=== PATIENT | female | born 1970 | race Caucasian/White ===

== ENCOUNTER → 2020-11-14 | Outpatient (CLI) | payer BC ==
[~2020-11-14] MED LIST: BUPR150T12 PO; CLON0.5T2 PO; CVS1CAP2 PO; CYAN100050 PO; D31000TA2 PO; VITA-158 PO; ZOLO100T PO
--- NOTE | 2020-11-14 14:58 | REPPI ---
INDICATION: KIDNEY STONES. COMPARISON: None. TECHNIQUE: Supine AP abdomen two views. FINDINGS: The renal margins are obscured by bowel gas. There are surgical staple lines in the abdominal left upper quadrant there surgical below stasis clips in the right upper quadrant. No calcifications are identified in the abdomen or pelvis. There are calcifications projected over the right hip, likely in the buttock, likely injection granulomas. The bowel gas pattern is normal. IMPRESSION: No abdominal or pelvic calcifications are identified. There are surgical clips as described. There are calcifications projected over the right hip, likely right buttock injection granulomas. <Electronically signed by Karan Vitale > 11/14/20 [id number]
== END ==
LOC: M PLAIMG 11:06
PROVIDERS: ATTEND Nurse Practitioner Women's Health
DX: N20.0 Calculus of kidney (principal)

== ENCOUNTER 2020-11-15 15:27 | Inpatient (IN) | payer BC ==
[~2020-11-15] VITALS: Ht 167.6 cm; Wt 131.5 kg
[2020-11-15] MEDS ORDERED: CVS1CAP2 PO (16:06)
[2020-11-15] MEDS ORDERED: CLON0.5T2 PO (16:06)
[2020-11-15] MEDS ORDERED: D31000TA2 PO (16:06)
[2020-11-15] MEDS ORDERED: BUPR150T12 PO (16:06)
[2020-11-15] MEDS ORDERED: CYAN100050 PO (16:06)
[2020-11-15] MEDS ORDERED: ZOLO100T PO (16:06)
[2020-11-15] MEDS ORDERED: VITA-158 PO (16:06)
[2020-11-15] MEDS ORDERED: fentaNYL 100 MCG/2 ML INJECTION (J3010) IV ONE (16:35)
[2020-11-15] MEDS ORDERED: ONDANSETRON 4MG/2ML VIAL IV PRN (17:15)
[2020-11-15] MEDS ORDERED: KETOROLAC 30 MG/ML 1ML VIAL IV PRN (17:15)
[2020-11-15] MEDS ORDERED: ACETAMINOPHEN TAB 650MG DOSE (2X325MG) PO PRN (17:15)
[2020-11-15 17:31] LABS: BASO # 0.1 10^3/uL (0.0-0.2); BASO % 0.7 % (0.0-1.0); EOS # 0.1 10^3/uL (0.0-0.5); EOS % 1.1 % (0.0-3.0); HEMATOCRIT 41.2 % (36.0-47.0); HEMOGLOBIN 13.5 g/dl (12.0-15.5); LYMPH # 1.7 10^3/uL (1.5-5.0); LYMPH % 20.6 % (24.0-44.0); MEAN CORPUSCULAR HEMOGLOBIN 29.4 pg (27.0-33.0); MEAN CORPUSCULAR HGB CONC 32.8 g/dl (32.0-36.5); MEAN CORPUSCULAR VOLUME 89.8 fl (80.0-96.0); MONO # 0.6 10^3/uL (0.0-0.8); MONO % 6.8 % (2.0-8.0); NEUTROPHILS # 5.9 10^3/uL (1.5-8.5); NEUTROPHILS % 70.6 % (36.0-66.0); PLATELET COUNT, AUTOMATED 260 10^3/uL (150-450); RED BLOOD COUNT 4.59 10^6/uL (4.00-5.40); WHITE BLOOD COUNT 8.4 10^3/uL (4.0-10.0)
[2020-11-15 17:40] LABS: INR 0.9; PROTHROMBIN TIME 12.4 SECONDS (12.5-14.3)
[2020-11-15 18:06] LABS: BLOOD UREA NITROGEN 18 MG/DL (7-18); CALCIUM LEVEL 8.9 MG/DL (8.5-10.1); CARBON DIOXIDE LEVEL 30 MEQ/L (21-32); CHLORIDE LEVEL 108 MEQ/L (98-107); CREATININE FOR GFR 0.88 MG/DL (0.55-1.30); GLOMERULAR FILTRATION RATE > 60.0 (>58); GLUCOSE, FASTING 101 MG/DL (70-100); POTASSIUM SERUM 4.1 MEQ/L (3.5-5.1); RSV AMPLIFICATION NEGATIVE (NEGATIVE); SODIUM LEVEL 141 MEQ/L (136-145)
--- NOTE | 2020-11-15 19:45 | HPEPDOC ---
General Date of Admission Nov 15, 2020 at 17:11 Date of Service: Nov 15, 2020 Chief Complaint The patient is a 50-year-old female admitted with a reason for visit of Intractable Pain Ureterolithiasis. Source: Patient History of Present Illness Mrs. Best is a 50 year old female with nephrolithiasis, Dar-Danlos syndrome, and history of gastric bypass who presents with 7mm right kidney stone. She was initially seen at [facility] last Wednesday for flank pain and found to have nephrolithiasis with a kidney stone of 7mm. She was sent home, but was supposed to have lithotripsy and stent placement by urology, Dr. Montoya today. Unfortunately, she did not know and ate a late breakfast. Right sided flank pain is still significant and has caused her to be nauseous. She vomited once on Wednesday. Pain has been constant and unremitting. Otherwise, patient does not have leukocytosis. UA demonstrates blood and pyuria which is likely from the stone. She has no dysuria. Would be cautious with antibiotics due to history of C.diff. Patient will be admitted for pain control and plan for surgery tomorrow with urology. Home Medications Scheduled Ascorbic Acid (Vitamin C) 500 Mg Tablet, 500 MG PO DAILY, (Reported) Bupropion Hcl (Bupropion Xl) 150 Mg Tab.er.24h, 150 MG PO DAILY, (Reported) Cholecalciferol (Vitamin D3) (Vitamin D3) 1,000 Unit Tablet, 1,000 UNITS PO DAILY, (Reported) Clonazepam (Clonazepam) 0.5 Mg Tablet, 0.5 MG PO QHS, (Reported) Cyanocobalamin (Vitamin B-12) (Vitamin B-12) 1,000 Mcg Tablet, 1,000 MCG PO DAILY, (Reported) Lactobacillus Combo No.10 (Probiotic) 1 Each Capsule, 1 CAP PO DAILY, (Reported) Sertraline Hcl (Zoloft) 100 Mg Tablet, 100 MG PO QHS, (Reported) Allergies Coded Allergies: Tetracyclines (Verified Allergy, Intermediate, 11/15/20) hives hydrocodone (Verified Allergy, Unknown, 11/15/20) morphine (Verified Allergy, Unknown, 11/15/20) shellfish derived (Verified Allergy, Unknown, 11/15/20) Past Medical History Medical History 1. Anxiety 2. Asthma 3. Depression 4. GERD 5. History of C.diff 6. Dar-Danlos syndrome 7. Insomnia 8. IBS 9. Nephrolithiasis 10. Meniere's disease 11. Obesity Surgical History 1. Cholecystectomy 2. Gastric bypass 3. Hysterectomy Family History Father: Trigeminal neuralgia, Diabetes mellitus, Melanoma, Dementia Mother: Mitral valve prolapse, Arthritis, CHF, COPD, Syncope Social History * Smoker: former Smoker (quit in 2008) Alcohol: Denies Drugs: denies A-FIB/CHADSVASC A-FIB History Current/History of A-Fib/PAF?: No Review of Systems Constitutional: Denies: Chills (Had chills when at [facility] on Wednesday, but not since then) Eyes: Reports: Vision change (Had blurry vision this morning, but improved) ENT: Denies: Sore Throat Skin: Denies: Rash Pulmonary: Reports: Dyspnea (related to anxiety), Cough (related to anxiety) Cardiovascular: Denies: Chest Pain Gastrointestinal: Reports: Nausea, Vomiting (last vomited Wednesday); Denies: Abdominal Pain Genitourinary: Denies: Dysuria Hematologic: Reports: Bruising Musculoskeletal: Reports: Other Symptoms (Flank pain) Neurological: Denies: Numbness Psych: Reports: Anxiety; Denies: Depression Physical Examination General Exam: Positive: Alert, Cooperative, Mild Distress Eye Exam: Positive: EOMI; Negative: Sclera icteric ENT Exam: Positive: Atraumatic Neck Exam: Positive: Supple Chest Exam: Positive: Clear to auscultation; Negative: Rales, Rhonchi, Wheezing Heart Exam: Positive: Rate Normal, Regular Rhythm Abdomen Exam: Positive: Normal bowel sounds, Soft; Negative: Tenderness Extremity Exam: Negative: Edema Neuro Exam: Positive: Normal Speech, Cranial Nerves 3-12 NL Psych Exam: Positive: Mental status NL, Mood NL Vital Signs Vital Signs Date Time Temp Pulse Resp B/P (MAP) Pulse Ox O2 Delivery O2 Flow Rate FiO2 11/15/20 19:02 97.3 58 18 126/87 (100) 99 Room Air Laboratory Data Labs 24H Laboratory Tests 2 11/15/20 16:45: Immature Granulocyte % (Auto) 0.2, Neutrophils (%) (Auto) 70.6H, Lymphocytes (%) (Auto) 20.6L, Monocytes (%) (Auto) 6.8, Eosinophils (%) (Auto) 1.1, Basophils (%) (Auto) 0.7, Neutrophils # (Auto) 5.9, Lymphocytes # (Auto) 1.7, Monocytes # (Auto) 0.6, Eosinophils # (Auto) 0.1, Basophils # (Auto) 0.1, Nucleated Red Blood Cells % (auto) 0.0, Prothrombin Time 12.4, Prothromb Time International Ratio 0.90, Anion Gap 3L, Glomerular Filtration Rate > 60.0, Calcium Level 8.9, Coronavirus (COVID-19)(PCR) NEGATIVE, Influenza Type A (RT-PCR) NEGATIVE, Influenza Type B (RT-PCR) NEGATIVE, Respiratory Syncytial Virus (PCR) NEGATIVE 11/15/20 16:46: Urine Color YELLOW, Urine Appearance CLOUDYH, Urine pH 6.0, Urine Specific [place] 1.016, Urine Protein 1+H, Urine Glucose (UA) NEGATIVE, Urine Ketones TRACEH, Urine Blood 3+H, Urine Nitrite NEGATIVE, Urine Bilirubin NEGATIVE, Urine Urobilinogen 2.0H, Urine Leukocyte Esterase 1+H, Urine WBC (Auto) 10H, Urine RBC (Auto) TNTCH, Urine Hyaline Casts (Auto) 0, Urine Bacteria (Auto) NEGATIVE, Urine Squamous Epithelial Cells 3, Urine Mucus (Auto) SMALL, Urine Sperm (Auto) CBC/BMP Laboratory Tests 11/15/20 16:45 Microbiology Microbiology 11/15/20 Urine Culture, Received Pending Assessment/Plan Mrs. Best is a 50 year old female with nephrolithiasis, Dar-Danlos syndrome, and history of gastric bypass who presents with 7mm right kidney stone. She will be admitted for pain control. Will start on IV ketorolac, IV fluids, and start NPO after midnight. Due to her history of gastric bypass, will start famotidine while on IV ketorolac. Plain for OR tomorrow morning with urology Plan / VTE VTE Prophylaxis Ordered?: Yes Plan Plan 1. Right 7mm kidney stone -Urology consulted, recommendations appreciated -Plan to go to the OR tomorrow morning -IV ketorolac for pain -IVF and stone analysis if possible -NPO after midnight 2. History of C.diff -Continue lactobacillus -Cautious with antibiotics 3. History of gastric bypass -Added on famotidine and liquid Carafate since patient will be on IV ketorolac for pain 4. Anxiety/depression -Continue bupropion, sertraline, and clonazepam 5. DVT ppx -SCD and TEDs Disposition: Pending surgery AMALIA MATHEWS DO Nov 15, 2020 19:45
[2020-11-15 20:15] VITALS: BP 107/69
[2020-11-15] MEDS: NS 1,000 ML IV SCH (20:26)
[2020-11-15] MEDS ORDERED: SERTRALINE 100 MG TAB PO SCH (21:00)
[2020-11-15] MEDS ORDERED: clonazePAM 0.5 MG TAB PO SCH (21:00)
[2020-11-15] MEDS: SUCRALFATE SUSP 1GM/10ML UD PO SCH (21:55)
[2020-11-16] MEDS: NS 1,000 ML IV SCH (04:30)
[2020-11-16 06:00] VITALS: BP 110/62
[2020-11-16 06:03] LABS: HEMATOCRIT 38.7 % (36.0-47.0); HEMOGLOBIN 12.4 g/dl (12.0-15.5); MEAN CORPUSCULAR VOLUME 90.6 fl (80.0-96.0); PLATELET COUNT, AUTOMATED 220 10^3/uL (150-450); RED BLOOD COUNT 4.27 10^6/uL (4.00-5.40); WHITE BLOOD COUNT 5.9 10^3/uL (4.0-10.0)
[2020-11-16 06:24] LABS: BLOOD UREA NITROGEN 15 MG/DL (7-18); CALCIUM LEVEL 8.2 MG/DL (8.5-10.1); CARBON DIOXIDE LEVEL 29 MEQ/L (21-32); CHLORIDE LEVEL 111 MEQ/L (98-107); CREATININE FOR GFR 0.93 MG/DL (0.55-1.30); GLOMERULAR FILTRATION RATE > 60.0 (>58); GLUCOSE, FASTING 93 MG/DL (70-100); POTASSIUM SERUM 4.2 MEQ/L (3.5-5.1); SODIUM LEVEL 143 MEQ/L (136-145)
[2020-11-16 09:00] VITALS: BP 121/66
[2020-11-16] MEDS ORDERED: CYANOCOBALAMIN 500 MCG TAB PO SCH (09:00)
[2020-11-16] MEDS ORDERED: buPROPion **XL** TABLET 150MG (WELLBUTRIN XL) PO SCH (09:00)
[2020-11-16] MEDS ORDERED: FAMOTIDINE 20 MG TAB PO SCH (09:00)
[2020-11-16] MEDS ORDERED: ASCORBIC ACID 500 MG TAB PO SCH (09:00)
[2020-11-16] MEDS ORDERED: LACTOBACILLUS ACIDOPHILUS CAP (BACID) PO SCH (09:00)
[2020-11-16] MEDS ORDERED: VITAMIN D 1,000 INTERNATIONAL UNITS TABLET PO SCH (09:00)
[2020-11-16] MEDS: SUCRALFATE SUSP 1GM/10ML UD PO SCH ×2 (09:27→15:55)
[2020-11-16] MEDS ORDERED: MIDAZOLAM INJ 2MG/2ML VIAL (J2250 PER 1MG) As Ordered ONE (09:57)
[2020-11-16] MEDS ORDERED: propofoL 200 MG/20 ML VIAL As Ordered ONE ×2 (09:57→12:29)
[2020-11-16] MEDS ORDERED: fentaNYL 100 MCG/2 ML INJECTION (J3010) As Ordered ONE (09:57)
[2020-11-16] MEDS ORDERED: LIDOCAINE 2% 100MG/5ML SDV (FOR ANES.) As Ordered ONE (09:57)
[2020-11-16] MEDS ORDERED: ACETAMINOPHEN 1000MG 100ML IV BTL (OFIRMEV) (J0131 PER 10MG) As Ordered ONE (09:58)
[2020-11-16] MEDS ORDERED: CONRAY-60 60% 50ML VIAL (Q9961) As Ordered ONE (11:14)
[2020-11-16] MEDS ORDERED: ceFAZolin 2 GM/D5W 50 ML IV BAG (J0690 PER 500MG) As Ordered ONE (11:22)
--- NOTE | 2020-11-16 12:14 | IPNPDOC ---
Subjective Date Seen The patient was seen on 11/16/20. Subjective Chief Complaint/HPI Mrs. Best is a 50 year old female with nephrolithiasis, Dar-Danlos syndrome, and history of gastric bypass who presents with 7mm right kidney stone. This morning, pain is controlled, she has a few twinges of pain. Has not passed stone. Denies chest pain or dyspnea. Patient kept NPO overnight for possible procedure today. Objective Physical Examination General Exam: Positive: Alert, Cooperative, Mild Distress Eye Exam: Positive: EOMI; Negative: Sclera icteric ENT Exam: Positive: Atraumatic Neck Exam: Positive: Supple Chest Exam: Positive: Clear to auscultation; Negative: Rales, Rhonchi, Wheezing Heart Exam: Positive: Rate Normal, Regular Rhythm Abdomen Exam: Positive: Normal bowel sounds, Soft; Negative: Tenderness Extremity Exam: Negative: Edema Neuro Exam: Positive: Normal Speech, Cranial Nerves 3-12 NL Psych Exam: Positive: Mental status NL, Mood NL Assessment /Plan Assessment Mrs. Best is a 50 year old female with nephrolithiasis, Dar-Danlos syndrome, and history of gastric bypass who presents with 7mm right kidney stone. She will be admitted for pain control. Will start on IV ketorolac, IV fluids, and start NPO after midnight. Due to her history of gastric bypass, will start famotidine while on IV ketorolac. Kept NPO after midnight for possible procedure this morning. Plan/VTE VTE Prophylaxis Ordered?: Yes Plan 1. Right 7mm kidney stone -Urology consulted, recommendations appreciated -Plan for OR today -IV ketorolac for pain -IVF and stone analysis if possible 2. History of C.diff -Continue lactobacillus -Cautious with antibiotics 3. History of gastric bypass -Added on famotidine and liquid Carafate since patient will be on IV ketorolac for pain 4. Anxiety/depression -Continue bupropion, sertraline, and clonazepam 5. DVT ppx -SCD and TEDs Disposition: Pending surgery and Urology recommendations VS, I&O, 24H, Fishbone Vital Signs/I&O Vital Signs Date Time Temp Pulse Resp B/P (MAP) Pulse Ox O2 Delivery O2 Flow Rate FiO2 11/16/20 09:00 97.2 52 13 121/66 (84) 98 Room Air I&O- Last 24 Hours up to 6 AM 4/10/21 06:00 Intake Total 0 ml Output Total 400 ml Balance -400 ml Laboratory Data 24H LABS Laboratory Tests 2 11/15/20 16:45: Immature Granulocyte % (Auto) 0.2, Neutrophils (%) (Auto) 70.6H, Lymphocytes (%) (Auto) 20.6L, Monocytes (%) (Auto) 6.8, Eosinophils (%) (Auto) 1.1, Basophils (%) (Auto) 0.7, Neutrophils # (Auto) 5.9, Lymphocytes # (Auto) 1.7, Monocytes # (Auto) 0.6, Eosinophils # (Auto) 0.1, Basophils # (Auto) 0.1, Nucleated Red Blood Cells % (auto) 0.0, Prothrombin Time 12.4, Prothromb Time International Ratio 0.90, Anion Gap 3L, Glomerular Filtration Rate > 60.0, Calcium Level 8.9, Coronavirus (COVID-19)(PCR) NEGATIVE, Influenza Type A (RT-PCR) NEGATIVE, Influenza Type B (RT-PCR) NEGATIVE, Respiratory Syncytial Virus (PCR) NEGATIVE 11/15/20 16:46: Urine Color YELLOW, Urine Appearance CLOUDYH, Urine pH 6.0, Urine Specific [place] 1.016, Urine Protein 1+H, Urine Glucose (UA) NEGATIVE, Urine Ketones TRACEH, Urine Blood 3+H, Urine Nitrite NEGATIVE, Urine Bilirubin NEGATIVE, Urine Urobilinogen 2.0H, Urine Leukocyte Esterase 1+H, Urine WBC (Auto) 10H, Urine RBC (Auto) TNTCH, Urine Hyaline Casts (Auto) 0, Urine Bacteria (Auto) NEGATIVE, Urine Squamous Epithelial Cells 3, Urine Mucus (Auto) SMALL, Urine Sperm (Auto) 11/16/20 05:47: Nucleated Red Blood Cells % (auto) 0.0, Anion Gap 3L, Glomerular Filtration Rate > 60.0, Calcium Level 8.2L CBC/BMP Laboratory Tests 11/15/20 16:45 11/16/20 05:47 Microbiology Microbiology 11/15/20 Urine Culture, Received Pending AMALIA MATHEWS DO Nov 16, 2020 12:14
[2020-11-16] MEDS ORDERED: ePHEDrine SULFATE 25 MG/5 ML(5MG/ML) SYRINGE As Ordered ONE (12:41)
[2020-11-16] MEDS ORDERED: LIDOCAINE 2% 5ML JELLY UROJET As Ordered ONE (12:44)
[2020-11-16] MEDS ORDERED: HYDROMORPHONE HCL 0.5 MG/ 0.5 ML SYRINGE (J1170 PER 1) IV PRN (13:15)
[2020-11-16] MEDS ORDERED: METOCLOPRAMIDE INJ 10MG/2ML VIAL (J2765 PER 1) IV PRN (13:15)
[2020-11-16] MEDS ORDERED: ONDANSETRON 4MG/2ML VIAL IV PRN (13:15)
[2020-11-16] MEDS ORDERED: LR 1,000 ML IV SCH (13:15)
[2020-11-16] MEDS ORDERED: fentaNYL 100 MCG/2 ML INJECTION (J3010) IV PRN (13:15)
[2020-11-16 13:45] VITALS: BP 138/78
--- NOTE | 2020-11-16 13:54 | ROOPDOC ---
[facility] Report Of Operation Report of Operation DATE OF PROCEDURE: 11/16/20 PREPROCEDURE DIAGNOSES: 7 mm right ureteropelvic junction stone POSTPROCEDURE DIAGNOSES: No definite stones seen PROCEDURE: Cystoscopy, right ureteroscopy, and right ureteral stent placement SURGEON: Cristy Bustos MD RIP TAILER: None ANESTHESIA: Gen. ESTIMATED BLOOD LOSS: None COMPLICATIONS: None REMARKS: No stone was definitely seen but there was a large blood clot seen with stone fragments in it that was grasped with a stone basket and removed PROCEDURE NOTE: The patient is a 50-year-old female who was seen at [facility] on 11/12/20 with severe right flank pain. A CT scan of the abdomen and pelvis was done which showed a 7 mm right ureteropelvic junction stone with associated hydroureteronephrosis. The patient continued to have pain and was seen in our office where she was scheduled for ureteroscopic stone manipulation. Unfortunately the pain became unbearable and she went back to the emergency room last night where she was admitted and it was decided to bring her to the operating room this morning. All options, alternatives, risks, and benefits were reviewed with the patient and all questions were answered. DESCRIPTION OF PROCEDURE: The patient was brought into the operating room and preoperative antibiotics have been given and SCDs were in place. An oral anesthesia was induced and then she was then placed in the lithotomy position. Careful attention was paid that her pressure points were well padded and protected. Next she was prepped and draped in the usual fashion. A 21 Yemeni cystoscope was inserted. The urethra was open without any lesions or strictures. Upon entering the bladder both ureteral orifices were seen. There was no evidence of stones, erythematous patches, lesions, or other abnormalities in the bladder. Under fluoroscopic guidance a wire was placed up the right ureteral orifice into the right collecting system. This was left as a safety wire. A second wire was then placed and a ureteral reentry sheath was placed over this. Next a flexible ureteroscope was passed and no stone was seen at the UPJ. At this point I injected some contrast into the collecting systems I could see were all the different calyces were. I then continued with ureteroscopic investigation. I did see 2 tiny stones and one blood clot that was filled with small fragments. I was able to remove the blood clot and is possible that the 7 mm stone had been with in this but got dissolved very easily when this was closed. I did not see any definite 7 mm stone ever in the kidney or the entire ureter which was also investigated. At this point a 6 Yemeni double-J ureteral stent was placed and the patient was returned to the recovery room in stable condition. CRISTY BUSTOS MD Nov 16, 2020 13:54
--- NOTE | 2020-11-16 14:08 | CR.PDOC ---
General Date of Consultation: Nov 16, 2020 Referring Provider: AMALIA MATHEWS DO Consultation REASON FOR CONSULTATION/CHIEF COMPLAINT: 7 mm right ureteropelvic junction stone with pain and nausea HISTORY OF PRESENT ILLNESS: Patient is a 50-year-old female who presented to [facility] originally on 11/12/20 with complaints of right flank pain and nausea. A CT scan of the abdomen and pelvis was done which showed a 7 mm right ureteropelvic junction stone with associated hydronephrosis. She was sent home but continued to have pain. She was seen in our office where she was then set up for outpatient surgery. Prior to the surgery date though she continued to have severe pain and came to the emergency room at [facility] last night. It was decided to bring her to the operating room today for stent placement and possible stone removal. All options, alternatives, risks, and benefits were discussed. Patient denied any gross hematuria or burning with urination. She denies recurrent urinary tract infections. She did have a kidney stone last year which most likely passed on its own. CT scan shows no other definite stones only have the report and not the films to review. An admission her white blood count and creatinine were normal and her urine showed too numerous to count red blood cells and 10 white blood cells per high-power field. The final urine culture comes back with no growth. ALLERGIES: Please see below. HOME MEDICATIONS: Please see below. PAST MEDICAL HISTORY: 1. Anxiety 2. Asthma 3. Depression 4. GERD 5. History of C.diff 6. Dar-Danlos syndrome 7. Insomnia 8. IBS 9. Nephrolithiasis in a patient who passed one stone last year 10. Meniere's disease 11. Obesity PAST SURGICAL HISTORY: 1. Cholecystectomy 2. Gastric bypass 3. Hysterectomy FAMILY HISTORY: There is no family history of kidney stone disease or other urologic abnormalities. Her father does have diabetes, melanoma, dementia, and trigeminal neuralgia. Her mother had CHF. COPD, mitral valve prolapse, and arthritis. SOCIAL HISTORY: She is . She denies drinking alcohol or using drugs. She quit smoking cigarettes in 2008. REVIEW OF SYSTEMS: A 12 system review was done. Originally she did have some chills when seen at [facility] but these have resolved. She also had some nausea and vomiting last week and still had some nausea with the pain. She had the right flank pain as above. The rest of the review is completely normal. PHYSICAL EXAMINATION: VITAL SIGNS: Please see below. This is a well-developed well-nourished female in no apparent respiratory distress. She is alert and oriented 3. Her head is normocephalic atraumatic. Her trachea is midline. She has no supraclavicular or cervical adenopathy. Her heart has a regular rate and rhythm and her lungs are clear to auscultation percussion. There are no rales, rhonchi, or wheezing. She does have some right CVA tenderness and mild right-sided abdominal pain but without rebound guarding or masses. Her extremities show no cyanosis clubbing or edema. Neurologic exam is nonfocal. LABORATORY DATA: Please see below. ASSESSMENT/PLAN: -7 mm right ureteropelvic junction stone in a patient with continued pain we w ill plan on bringing her urgently to the operating room for cystoscopy, ureteroscopy, and stent placement. She understands because of where the stone is that it may be pushed back into the kidney and that we may not be up to remove it today and she may require further outpatient management. -Patient has a history of C. difficile so since her urine culture is negative I would not give prophylactic antibiotics Vital Signs/I&O Vital Signs Date Time Temp Pulse Resp B/P (MAP) Pulse Ox O2 Delivery O2 Flow Rate FiO2 11/16/20 13:15 67 18 148/78 (101) 98 Room Air 11/16/20 13:00 12.0 11/16/20 09:00 97.2 I&O- Last 24 Hours up to 6 AM 11/16/20 06:00 Intake Total 0 ml Output Total 400 ml Balance -400 ml Laboratory Data Labs 24H Laboratory Tests 2 11/15/20 16:45: Immature Granulocyte % (Auto) 0.2, Neutrophils (%) (Auto) 70.6H, Lymphocytes (%) (Auto) 20.6L, Monocytes (%) (Auto) 6.8, Eosinophils (%) (Auto) 1.1, Basophils (%) (Auto) 0.7, Neutrophils # (Auto) 5.9, Lymphocytes # (Auto) 1.7, Monocytes # (Auto) 0.6, Eosinophils # (Auto) 0.1, Basophils # (Auto) 0.1, Nucleated Red Blood Cells % (auto) 0.0, Prothrombin Time 12.4, Prothromb Time International Ratio 0.90, Anion Gap 3L, Glomerular Filtration Rate > 60.0, Calcium Level 8.9, Coronavirus (COVID-19)(PCR) NEGATIVE, Influenza Type A (RT-PCR) NEGATIVE, Influenza Type B (RT-PCR) NEGATIVE, Respiratory Syncytial Virus (PCR) NEGATIVE 11/15/20 16:46: Urine Color YELLOW, Urine Appearance CLOUDYH, Urine pH 6.0, Urine Specific [place] 1.016, Urine Protein 1+H, Urine Glucose (UA) NEGATIVE, Urine Ketones TRACEH, Urine Blood 3+H, Urine Nitrite NEGATIVE, Urine Bilirubin NEGATIVE, Urine Urobilinogen 2.0H, Urine Leukocyte Esterase 1+H, Urine WBC (Auto) 10H, Urine RBC (Auto) TNTCH, Urine Hyaline Casts (Auto) 0, Urine Bacteria (Auto) NEGATIVE, Urine Squamous Epithelial Cells 3, Urine Mucus (Auto) SMALL, Urine Sperm (Auto) 11/16/20 05:47: Nucleated Red Blood Cells % (auto) 0.0, Anion Gap 3L, Glomerular Filtration Rate > 60.0, Calcium Level 8.2L CBC/BMP Laboratory Tests 11/15/20 16:45 11/16/20 05:47 Microbiology Microbiology 11/15/20 Urine Culture - Final, Complete Allergies Coded Allergies: Tetracyclines (Verified Allergy, Intermediate, 11/15/20) hives hydrocodone (Verified Allergy, Unknown, ANAPHYLAXIS, 11/16/20) morphine (Verified Allergy, Unknown, 11/15/20) shellfish derived (Verified Allergy, Unknown, 11/15/20) Home Medications Scheduled Ascorbic Acid (Vitamin C) 500 Mg Tablet, 500 MG PO DAILY, (Reported) Bupropion Hcl (Bupropion Xl) 150 Mg Tab.er.24h, 150 MG PO DAILY, (Reported) Cholecalciferol (Vitamin D3) (Vitamin D3) 1,000 Unit Tablet, 1,000 UNITS PO DAILY, (Reported) Clonazepam (Clonazepam) 0.5 Mg Tablet, 0.5 MG PO QHS, (Reported) Cyanocobalamin (Vitamin B-12) (Vitamin B-12) 1,000 Mcg Tablet, 1,000 MCG PO DAILY, (Reported) Lactobacillus Combo No.10 (Probiotic) 1 Each Capsule, 1 CAP PO DAILY, (Reported) Sertraline Hcl (Zoloft) 100 Mg Tablet, 100 MG PO QHS, (Reported) TYLOR BUSTOS MD Nov 16, 2020 14:07
[2020-11-16 14:15] VITALS: BP 120/67
[2020-11-16 14:45] VITALS: BP 127/68
[2020-11-16 15:45] VITALS: BP 106/82
--- NOTE | 2020-11-16 22:17 | DS.PDOC ---
Discharge Summary General Date of Admission Nov 15, 2020 at 17:11 Date of Discharge Nov 16, 2020 Discharge Summary PROCEDURES PERFORMED DURING STAY: [None]. ADMITTING DIAGNOSES: 1. . DISCHARGE DIAGNOSES: 1. . COMPLICATIONS/CHIEF COMPLAINT: Intractable Pain Ureterolithiasis. HISTORY OF PRESENT ILLNESS: . HOSPITAL COURSE: . DISCHARGE MEDICATIONS: Please see below. ALLERGIES: Please see below. PHYSICAL EXAMINATION ON DISCHARGE: VITAL SIGNS: Please see below. GENERAL: HEENT: NECK: CARDIOVASCULAR EXAMINATION: RESPIRATORY EXAMINATION: ABDOMINAL EXAMINATION: EXTREMITIES: SKIN: NEUROLOGICAL EXAMINATION: PSYCHIATRIC EXAMINATION: LABORATORY DATA: Please see below. IMAGING: PROGNOSIS: ACTIVITY: [As tolerated]. DIET: DISCHARGE PLAN: DISPOSITION: Home, Self-Care. DISCHARGE INSTRUCTIONS: 1. . ITEMS TO FOLLOWUP ON ON OUTPATIENT: 1. . DISCHARGE CONDITION: [Stable]. TIME SPENT ON DISCHARGE: Greater than minutes. Vital Signs/I&Os Vital Signs Date Time Temp Pulse Resp B/P (MAP) Pulse Ox O2 Delivery O2 Flow Rate FiO2 11/16/20 15:45 97.9 66 18 106/82 (90) 95 Room Air 11/16/20 13:00 12.0 I&O- Last 24 Hours up to 6 AM 11/16/20 06:00 Intake Total 0 ml Output Total 400 ml Balance -400 ml Laboratory Data Labs 24H Laboratory Tests 2 11/16/20 05:47: Nucleated Red Blood Cells % (auto) 0.0, Anion Gap 3L, Glomerular Filtration Rate > 60.0, Calcium Level 8.2L CBC/BMP Laboratory Tests 11/16/20 05:47 Microbiology Microbiology 11/15/20 Urine Culture - Final, Complete Discharge Medications Scheduled Ascorbic Acid (Vitamin C) 500 Mg Tablet, 500 MG PO DAILY, (Reported) Bupropion Hcl (Bupropion Xl) 150 Mg Tab.er.24h, 150 MG PO DAILY, (Reported) Cholecalciferol (Vitamin D3) (Vitamin D3) 1,000 Unit Tablet, 1,000 UNITS PO DAILY, (Reported) Clonazepam (Clonazepam) 0.5 Mg Tablet, 0.5 MG PO QHS, (Reported) Cyanocobalamin (Vitamin B-12) (Vitamin B-12) 1,000 Mcg Tablet, 1,000 MCG PO DAILY, (Reported) Lactobacillus Combo No.10 (Probiotic) 1 Each Capsule, 1 CAP PO DAILY, (Reported) Sertraline Hcl (Zoloft) 100 Mg Tablet, 100 MG PO QHS, (Reported) Allergies Coded Allergies: Tetracyclines (Verified Allergy, Intermediate, 11/15/20) hives hydrocodone (Verified Allergy, Unknown, ANAPHYLAXIS, 11/16/20) morphine (Verified Allergy, Unknown, 11/15/20) shellfish derived (Verified Allergy, Unknown, 11/15/20) AMALIA MATHEWS DO Nov 16, 2020 22:17
== END 2020-11-16 16:46 | disposition home or self-care (01) | DRG 443 ==
LOC: M ED 15:27 → M ED INP 17:11 → ENRESERV 18:59 → M MS5PR 20:10
PROVIDERS: ADMIT Internal Medicine; ATTEND Internal Medicine
PROC: 0T768DZ Dilation of Right Ureter with Intraluminal Device, Via Natural or Artificial Opening Endoscopic (ICD-10-PCS; 2020-11-16)
PROC: 0TC04ZZ Extirpation of Matter from Right Kidney, Percutaneous Endoscopic Approach (ICD-10-PCS; principal; 2020-11-16 10:30)
DX: N13.0 Hydronephrosis with ureteropelvic junction obstruction (principal); Z68.42 Body mass index [BMI] 45.0-49.9, adult; Q79.60 Ehlers-Danlos syndrome, unspecified; E66.9 Obesity, unspecified; G47.00 Insomnia, unspecified; F32.9 Major depressive disorder, single episode, unspecified; F41.9 Anxiety disorder, unspecified; J45.909 Unspecified asthma, uncomplicated; K21.9 Gastro-esophageal reflux disease without esophagitis; K58.9 Irritable bowel syndrome, unspecified; H81.09 Meniere's disease, unspecified ear; Z20.822 Contact with and (suspected) exposure to COVID-19; Z79.899 Other long term (current) drug therapy; Z88.5 Allergy status to narcotic agent; Z88.8 Allergy status to other drugs, medicaments and biological substances; Z98.84 Bariatric surgery status; Z91.013 Allergy to seafood; Z87.891 Personal history of nicotine dependence

== ENCOUNTER → 2021-03-07 | Outpatient (REF) | payer BC ==
[2021-03-07 18:22] LABS: C REACTIVE PROTEIN QUANTITATIV 0.36 MG/DL (0.00-0.30); CPK CREATINE PHOSPHOKINASE 102 U/L (26-192); IRON (FE) 66 UG/DL (50-170); MAGNESIUM LEVEL 2.3 MG/DL (1.8-2.4); PHOSPHORUS LEVEL 4.4 MG/DL (2.5-4.9); RHEUMATOID FACTOR QUANT < 10.0 IU/ML (<15.0)
[2021-03-07 18:23] LABS: TOTAL 25(OH) VITAMIN D 35.4 NG/ML (30.0-100.0)
[2021-03-07 18:24] LABS: VITAMIN B12 LEVEL 886 PG/ML (247-911)
[2021-03-11 00:08] LABS: ANA (HEP2) Negative (.); CYCLIC CITRULLINATED PEPTIDE 5 units (0-19)
== END ==
LOC: M SFHCRHEU 15:01
PROVIDERS: ATTEND Internal Medicine
DX: M79.10 Myalgia, unspecified site (principal); M25.40 Effusion, unspecified joint

== ENCOUNTER 2022-06-08 14:20 | Outpatient (CLI) | payer BC ==
[~2022-06-08] VITALS: Ht 167.6 cm; Wt 134.2 kg
[~2022-06-08 14:20] MED LIST changes: +ALBUTEROL SULFATE 2.5 MG/0.5 ML INH NEB SOLN INH PRN; -D31000TA2 PO; +EPINEPHrine INJ 1 MG/ML 1ML AMP IM PRN; +VITA100093 PO; +diphenhydrAMINE 50MG/ML VIAL (J1200) IV PRN; +methylPREDNISolone 125MG 2ML VIAL IV PRN
[2022-06-08 14:25] VITALS: BP 133/79
[2022-06-08] MEDS ORDERED: ABATACEPT IV ONE ×2 (14:30)
[2022-06-08] MEDS ORDERED: diphenhydrAMINE 25MG CAP PO ONE (14:30)
[2022-06-08] MEDS ORDERED: ACETAMINOPHEN TAB 650MG DOSE (2X325MG) PO ONE (14:30)
[2022-06-08] MEDS ORDERED: CLAR10CA3 PO (15:02)
[2022-06-08] MEDS ORDERED: PRED1TABL PO (15:03)
[2022-06-08 16:01] VITALS: BP 133/73
[2022-06-08 16:35] VITALS: BP 147/83
== END 2022-06-08 16:35 | disposition home or self-care (01) ==
LOC: M INFU 14:20
PROVIDERS: ATTEND Internal Medicine
DX: M06.00 Rheumatoid arthritis without rheumatoid factor, unspecified site (principal); Z88.1 Allergy status to other antibiotic agents; Z88.5 Allergy status to narcotic agent; Z91.013 Allergy to seafood
CPT/HCPCS: 96365; J0129

== ENCOUNTER 2022-07-06 14:00 | Outpatient (CLI) | payer BC ==
[~2022-07-06] VITALS: Ht 167.6 cm; Wt 134.7 kg
[2022-07-06 14:00] VITALS: BP 138/78
[~2022-07-06 14:00] MED LIST changes: +ABATACEPT IV ONE; +ACETAMINOPHEN TAB 650MG DOSE (2X325MG) PO ONE; +CLAR10CA3 PO; +PRED1TABL PO; +diphenhydrAMINE 50MG CAP PO ONE; -diphenhydrAMINE 50MG/ML VIAL (J1200) IV PRN; +diphenhydrAMINE 50MG/ML VIAL IV PRN
[2022-07-06 15:45] VITALS: BP 149/70
== END 2022-07-06 15:50 | disposition home or self-care (01) ==
LOC: M INFU 14:00
PROVIDERS: ATTEND Internal Medicine
DX: M06.00 Rheumatoid arthritis without rheumatoid factor, unspecified site (principal)
CPT/HCPCS: 96365; J0129

== ENCOUNTER 2022-08-31 14:05 | Outpatient (CLI) | payer BC ==
[~2022-08-31 14:05] MED LIST changes: -ALBUTEROL SULFATE 2.5 MG/0.5 ML INH NEB SOLN INH PRN; +ALBUTEROL SULFATE 2.5MG/0.5ML INH NEB SOLN INH PRN
[2022-08-31 15:19] VITALS: BP 136/87
== END 2022-08-31 15:20 | disposition home or self-care (01) ==
LOC: M INFU 14:05
PROVIDERS: ATTEND Internal Medicine
DX: M06.00 Rheumatoid arthritis without rheumatoid factor, unspecified site (principal); Z88.1 Allergy status to other antibiotic agents; Z88.5 Allergy status to narcotic agent
CPT/HCPCS: 96365; J0129

== ENCOUNTER 2022-09-28 12:00 | Outpatient (CLI) | payer BC ==
[~2022-09-28] VITALS: Ht 170.2 cm; Wt 131.8 kg
[~2022-09-28 12:00] MED LIST changes: -ABATACEPT IV ONE; -ACETAMINOPHEN TAB 650MG DOSE (2X325MG) PO ONE; -diphenhydrAMINE 50MG CAP PO ONE
[2022-09-28 17:00] VITALS: BP 173/80
[2022-09-28] MEDS ORDERED: ACETAMINOPHEN TAB 650MG DOSE (2X325MG) PO ONE (17:00)
[2022-09-28] MEDS ORDERED: ABATACEPT IV ONE ×2 (17:00)
[2022-09-28] MEDS ORDERED: diphenhydrAMINE 25MG CAP PO ONE (17:00)
[2022-09-28 18:35] VITALS: BP 134/68
== END 2022-09-28 18:35 | disposition home or self-care (01) ==
LOC: M INFU 12:00
PROVIDERS: ATTEND Internal Medicine
DX: M06.00 Rheumatoid arthritis without rheumatoid factor, unspecified site (principal); Z88.1 Allergy status to other antibiotic agents; Z88.5 Allergy status to narcotic agent
CPT/HCPCS: 96365; J0129

== ENCOUNTER 2022-10-26 16:45 | Outpatient (CLI) | payer BC ==
[~2022-10-26] VITALS: Ht 167.6 cm; Wt 134.2 kg
[2022-10-26 16:48] VITALS: BP 133/88
[2022-10-26] MEDS ORDERED: NS 1,000 ML IV SCH (17:00)
[2022-10-26] MEDS ORDERED: ABATACEPT IV ONE ×2 (17:00)
[2022-10-26] MEDS ORDERED: diphenhydrAMINE 50MG CAP PO ONE (17:00)
[2022-10-26] MEDS ORDERED: ACETAMINOPHEN TAB 650MG DOSE (2X325MG) PO ONE (17:00)
[2022-10-26 17:55] VITALS: BP 136/78
== END 2022-10-26 17:55 | disposition home or self-care (01) ==
LOC: M INFU 16:45
PROVIDERS: ATTEND Internal Medicine
DX: M06.00 Rheumatoid arthritis without rheumatoid factor, unspecified site (principal); Z88.5 Allergy status to narcotic agent; Z88.0 Allergy status to penicillin
CPT/HCPCS: 96365; J0129

== ENCOUNTER 2022-11-23 16:14 | Outpatient (CLI) | payer BC ==
[~2022-11-23] VITALS: Ht 170.2 cm; Wt 137.8 kg
[~2022-11-23 16:14] MED LIST changes: -ALBUTEROL SULFATE 2.5MG/0.5ML INH NEB SOLN INH PRN; -EPINEPHrine INJ 1 MG/ML 1ML AMP IM PRN; -diphenhydrAMINE 50MG/ML VIAL IV PRN; -methylPREDNISolone 125MG 2ML VIAL IV PRN
[2022-11-23 16:45] VITALS: BP 130/67
[2022-11-23] MEDS ORDERED: ACETAMINOPHEN TAB 650MG DOSE (2X325MG) PO ONE (17:00)
[2022-11-23] MEDS ORDERED: EPINEPHrine INJ 1 MG/ML 1ML AMP IM PRN (17:00)
[2022-11-23] MEDS ORDERED: NS 1,000 ML IV SCH (17:00)
[2022-11-23] MEDS ORDERED: diphenhydrAMINE 50MG CAP PO ONE (17:00)
[2022-11-23] MEDS ORDERED: ABATACEPT IV ONE ×2 (17:00)
[2022-11-23] MEDS ORDERED: diphenhydrAMINE 50MG/ML VIAL IV PRN (17:00)
[2022-11-23] MEDS ORDERED: methylPREDNISolone 125MG 2ML VIAL IV PRN (17:00)
[2022-11-23] MEDS ORDERED: ALBUTEROL SULFATE 2.5MG/0.5ML INH NEB SOLN INH PRN (17:00)
[2022-11-23 17:45] VITALS: BP 120/58
== END 2022-11-23 17:47 ==
LOC: M INFU 16:14
PROVIDERS: ATTEND Internal Medicine
DX: M06.00 Rheumatoid arthritis without rheumatoid factor, unspecified site (principal); Z88.1 Allergy status to other antibiotic agents; Z88.5 Allergy status to narcotic agent
CPT/HCPCS: 96365; J0129

== ENCOUNTER → 2022-12-08 | Outpatient (REF) | payer BC ==
[2022-12-08 16:46] LABS: ALBUMIN 3.7 G/DL (3.2-5.2); ALKALINE PHOSPHATASE 102 U/L (46-116); ALT/SGPT 19 U/L (7.0-40); AST/SGOT 21 U/L (<34); BASO # 0.1 10^3/uL (0.0-0.2); BASO % 0.9 % (0.0-1.0); BILIRUBIN,DIRECT 0.1 MG/DL (<0.4); BILIRUBIN,TOTAL 0.4 MG/DL (0.3-1.2); BLOOD UREA NITROGEN 16 MG/DL (9-23); CALCIUM LEVEL 8.6 MG/DL (8.5-10.1); CARBON DIOXIDE LEVEL 31 MMOL/L (20-31); CHLORIDE LEVEL 107 MMOL/L (98-107); CREATININE FOR GFR 0.91 MG/DL (0.55-1.30); EOS # 0.1 10^3/uL (0.0-0.5); EOS % 1.6 % (0.0-3.0); GLOMERULAR FILTRATION RATE > 60.0 (>51); GLUCOSE, FASTING 90 MG/DL (60-100); HEMATOCRIT 41.4 % (36.0-47.0); HEMOGLOBIN 12.6 g/dl (12.0-15.5); LYMPH # 1.9 10^3/uL (1.5-5.0); LYMPH % 27.6 % (24.0-44.0); MEAN CORPUSCULAR HEMOGLOBIN 26.5 pg (27.0-33.0); MEAN CORPUSCULAR HGB CONC 30.4 g/dl (32.0-36.5); MONO # 0.6 10^3/uL (0.0-0.8); MONO % 7.9 % (2.0-8.0); NEUTROPHILS # 4.3 10^3/uL (1.5-8.5); NEUTROPHILS % 61.7 % (36.0-66.0); PLATELET COUNT, AUTOMATED 270 10^3/uL (150-450); POTASSIUM SERUM 4.6 MMOL/L (3.5-5.1); RED BLOOD COUNT 4.76 10^6/uL (4.00-5.40); SODIUM LEVEL 143 MMOL/L (136-145); TOTAL PROTEIN 6.5 G/DL (5.7-8.2)
[2022-12-08 16:47] LABS: C REACTIVE PROTEIN QUANTITATIV < 0.40 MG/DL (<1.0)
[2022-12-08 17:35] LABS: ERYTHROCYTE SEDIMENTATION RATE 38 mm/hr (0-30)
== END ==
LOC: M SFHCRHEU 12:37
PROVIDERS: ATTEND Internal Medicine
DX: M06.00 Rheumatoid arthritis without rheumatoid factor, unspecified site (principal)

== ENCOUNTER → 2022-12-21 | Outpatient (CLI) | payer BC ==
[~2022-12-21] VITALS: Ht 170.2 cm; Wt 138.0 kg
[~2022-12-21] MED LIST changes: +ABATACEPT IV ONE; +ACETAMINOPHEN 650MG ER TAB (TYLENOL ARTHRITIS) PO ONE; +ALBUTEROL SULFATE 2.5MG/0.5ML INH NEB SOLN INH PRN; +EPINEPHrine INJ 1 MG/ML 1ML AMP IM PRN; +diphenhydrAMINE 25MG CAP PO ONE; +diphenhydrAMINE 50MG/ML VIAL IV PRN; +methylPREDNISolone 125MG 2ML VIAL IV PRN
[2022-12-21 16:36] VITALS: BP 130/79
[2022-12-21 17:48] VITALS: BP 121/68
== END ==
LOC: M INFU 16:25
PROVIDERS: ATTEND Internal Medicine
DX: M06.00 Rheumatoid arthritis without rheumatoid factor, unspecified site (principal); Z88.1 Allergy status to other antibiotic agents; Z88.5 Allergy status to narcotic agent
CPT/HCPCS: 96365; J0129

== ENCOUNTER 2023-01-18 16:15 | Outpatient (CLI) | payer BC ==
[~2023-01-18] VITALS: Ht 170.2 cm; Wt 133.2 kg
[2023-01-18 16:05] VITALS: BP 174/87; O2SAT 95
[~2023-01-18 16:15] MED LIST changes: -ABATACEPT IV ONE; -ACETAMINOPHEN 650MG ER TAB (TYLENOL ARTHRITIS) PO ONE; -ALBUTEROL SULFATE 2.5MG/0.5ML INH NEB SOLN INH PRN; +CYAN-1 PO; -CYAN100050 PO; -EPINEPHrine INJ 1 MG/ML 1ML AMP IM PRN; -diphenhydrAMINE 25MG CAP PO ONE; -diphenhydrAMINE 50MG/ML VIAL IV PRN; -methylPREDNISolone 125MG 2ML VIAL IV PRN
[2023-01-18] MEDS ORDERED: methylPREDNISolone 125MG 2ML VIAL IV PRN (17:00)
[2023-01-18] MEDS ORDERED: ALBUTEROL SULFATE 2.5MG/0.5ML INH NEB SOLN INH PRN (17:00)
[2023-01-18] MEDS ORDERED: EPINEPHrine INJ 1 MG/ML 1ML AMP IM PRN (17:00)
[2023-01-18] MEDS ORDERED: ABATACEPT IV ONE ×2 (17:00)
[2023-01-18] MEDS ORDERED: ACETAMINOPHEN 650MG ER TAB (TYLENOL ARTHRITIS) PO ONE (17:00)
[2023-01-18] MEDS ORDERED: diphenhydrAMINE 25MG CAP PO ONE (17:00)
[2023-01-18] MEDS ORDERED: diphenhydrAMINE 50MG/ML VIAL IV PRN (17:00)
[2023-01-18 17:32] VITALS: BP 142/80; O2SAT 96
== END 2023-01-18 17:32 | disposition home or self-care (01) ==
LOC: M INFU 16:15
PROVIDERS: ATTEND Internal Medicine
DX: M06.00 Rheumatoid arthritis without rheumatoid factor, unspecified site (principal); Z88.5 Allergy status to narcotic agent; Z88.1 Allergy status to other antibiotic agents
CPT/HCPCS: 96365; J0129

== ENCOUNTER 2023-02-23 14:07 | Outpatient (CLI) | payer BC ==
[~2023-02-23] VITALS: Ht 167.6 cm; Wt 135.6 kg
[~2023-02-23 14:07] MED LIST changes: +ABATACEPT IV ONE; +ACETAMINOPHEN TAB 650MG DOSE (2X325MG) PO ONE; +ALBUTEROL SULFATE 2.5MG/0.5ML INH NEB SOLN INH PRN; +EPINEPHrine INJ 1 MG/ML 1ML AMP IM PRN; +NS 1,000 ML IV SCH; +diphenhydrAMINE 25MG CAP PO ONE; +diphenhydrAMINE 50MG/ML VIAL IV PRN; +methylPREDNISolone 125MG 2ML VIAL IV PRN
[2023-02-23 14:15] VITALS: BP 132/66; O2SAT 97
[2023-02-23 14:21] VITALS: BP 121/59; TEMP 98; O2SAT 97
[2023-02-23 16:00] VITALS: BP 118/64; TEMP 97.8; O2SAT 99
== END 2023-02-23 16:00 ==
LOC: M INFU 14:07
PROVIDERS: ATTEND Internal Medicine
DX: M06.00 Rheumatoid arthritis without rheumatoid factor, unspecified site (principal); Z88.1 Allergy status to other antibiotic agents; Z88.5 Allergy status to narcotic agent
CPT/HCPCS: 96365; J0129

== ENCOUNTER 2023-03-24 14:15 | Outpatient (CLI) | payer BC ==
[~2023-03-24] VITALS: Ht 167.6 cm; Wt 132.0 kg
[~2023-03-24 14:15] MED LIST changes: -ABATACEPT IV ONE; -ACETAMINOPHEN TAB 650MG DOSE (2X325MG) PO ONE; -NS 1,000 ML IV SCH; -diphenhydrAMINE 25MG CAP PO ONE
[2023-03-24 14:23] VITALS: BP 149/75; O2SAT 95
[2023-03-24] MEDS ORDERED: ACETAMINOPHEN 650MG ER TAB (TYLENOL ARTHRITIS) PO ONE (14:30)
[2023-03-24] MEDS ORDERED: ABATACEPT IV ONE ×2 (14:30)
[2023-03-24] MEDS ORDERED: diphenhydrAMINE 50MG CAP PO ONE (14:30)
[2023-03-24 15:45] VITALS: BP 124/79; O2SAT 99
== END 2023-03-24 15:45 ==
LOC: M INFU 14:15
PROVIDERS: ATTEND Internal Medicine
DX: M06.00 Rheumatoid arthritis without rheumatoid factor, unspecified site (principal); Z88.1 Allergy status to other antibiotic agents; Z88.5 Allergy status to narcotic agent
CPT/HCPCS: 96365; J0129

== ENCOUNTER → 2023-03-29 | Outpatient (REF) | payer BC ==
[~2023-03-29] MED LIST changes: -ALBUTEROL SULFATE 2.5MG/0.5ML INH NEB SOLN INH PRN; -EPINEPHrine INJ 1 MG/ML 1ML AMP IM PRN; -diphenhydrAMINE 50MG/ML VIAL IV PRN; -methylPREDNISolone 125MG 2ML VIAL IV PRN
[2023-03-29 18:11] LABS: MAGNESIUM LEVEL 2.2 MG/DL (1.8-2.4)
[2023-03-29 18:15] LABS: FOLATE 13.61 NG/ML (>5.4); TOTAL 25(OH) VITAMIN D 15.9 NG/ML (20.0-100.0)
== END ==
LOC: M SFHCRHEU 13:04
PROVIDERS: ATTEND Internal Medicine
DX: R53.83 Other fatigue (principal)

== ENCOUNTER 2023-04-21 14:15 | Outpatient (CLI) | payer BC ==
[~2023-04-21] VITALS: Ht 170.2 cm; Wt 137.2 kg
[2023-04-21 14:15] VITALS: BP 134/69; O2SAT 97
[~2023-04-21 14:15] MED LIST changes: +ALBUTEROL SULFATE 2.5MG/0.5ML INH NEB SOLN INH PRN; +EPINEPHrine INJ 1 MG/ML 1ML AMP IM PRN; +diphenhydrAMINE 50MG/ML VIAL IV PRN; +methylPREDNISolone 125MG 2ML VIAL IV PRN
[2023-04-21] MEDS ORDERED: ABATACEPT IV ONE ×2 (14:30)
[2023-04-21] MEDS ORDERED: ACETAMINOPHEN 650MG ER TAB (TYLENOL ARTHRITIS) PO ONE (14:30)
[2023-04-21] MEDS ORDERED: diphenhydrAMINE 50MG PO PRIOR TO INFUSION PO ONE (14:30)
[2023-04-21 15:40] VITALS: BP 143/67; O2SAT 97
== END 2023-04-21 15:40 | disposition home or self-care (01) ==
LOC: M INFU 14:15
PROVIDERS: ATTEND Internal Medicine
DX: M06.00 Rheumatoid arthritis without rheumatoid factor, unspecified site (principal); Z88.5 Allergy status to narcotic agent; Z88.8 Allergy status to other drugs, medicaments and biological substances; Z91.013 Allergy to seafood
CPT/HCPCS: 96365; J0129

== ENCOUNTER 2023-05-19 11:25 | Outpatient (CLI) | payer BC ==
[~2023-05-19] VITALS: Ht 170.2 cm; Wt 135.9 kg
[2023-05-19] MEDS ORDERED: ACETAMINOPHEN 650MG ER TAB (TYLENOL ARTHRITIS) PO ONE (16:30)
[2023-05-19] MEDS ORDERED: diphenhydrAMINE 50MG CAP PO ONE (16:30)
[2023-05-19 16:34] VITALS: BP 139/87; TEMP 98.1; O2SAT 94
[2023-05-19] MEDS ORDERED: ABATACEPT IV ONE ×2 (17:00)
[2023-05-19 18:10] VITALS: BP 134/75; O2SAT 100
== END 2023-05-19 18:10 ==
LOC: M INFU 11:25
PROVIDERS: ATTEND Internal Medicine
DX: M06.00 Rheumatoid arthritis without rheumatoid factor, unspecified site (principal); Z88.5 Allergy status to narcotic agent; Z88.1 Allergy status to other antibiotic agents
CPT/HCPCS: 96365; J0129

== ENCOUNTER → 2024-02-03 | Outpatient (REF) | payer BC, MEDICARE ==
[~2024-02-03] MED LIST changes: -ALBUTEROL SULFATE 2.5MG/0.5ML INH NEB SOLN INH PRN; -EPINEPHrine INJ 1 MG/ML 1ML AMP IM PRN; -diphenhydrAMINE 50MG/ML VIAL IV PRN; -methylPREDNISolone 125MG 2ML VIAL IV PRN
[2024-02-03 17:35] LABS: BASO # 0.1 10^3/uL (0.0-0.2); BASO % 1.2 % (0.0-1.0); EOS # 0.2 10^3/uL (0.0-0.5); EOS % 3.2 % (0.0-3.0); HEMATOCRIT 41.7 % (36.0-47.0); HEMOGLOBIN 13.2 g/dl (12.0-15.5); LYMPH # 2.2 10^3/uL (1.5-5.0); LYMPH % 30.3 % (24.0-44.0); MEAN CORPUSCULAR HEMOGLOBIN 28.4 pg (27.0-33.0); MEAN CORPUSCULAR HGB CONC 31.7 g/dl (32.0-36.5); MEAN CORPUSCULAR VOLUME 89.9 fl (80.0-96.0); MONO # 0.6 10^3/uL (0.0-0.8); MONO % 8.5 % (2.0-8.0); NEUTROPHILS # 4.2 10^3/uL (1.5-8.5); NEUTROPHILS % 56.5 % (36.0-66.0); PLATELET COUNT, AUTOMATED 286 10^3/uL (150-450); RED BLOOD COUNT 4.64 10^6/uL (4.00-5.40); WHITE BLOOD COUNT 7.4 10^3/uL (4.0-10.0)
[2024-02-03 17:37] LABS: C REACTIVE PROTEIN QUANTITATIV < 0.40 MG/DL (<1.0)
[2024-02-03 17:39] LABS: ALBUMIN 3.6 G/DL (3.2-5.2); ALKALINE PHOSPHATASE 125 U/L (46-116); ALT/SGPT 29 U/L (7.0-40); AST/SGOT 22 U/L (<34); BILIRUBIN,DIRECT 0.1 MG/DL (<0.4); BILIRUBIN,TOTAL 0.4 MG/DL (0.3-1.2); BLOOD UREA NITROGEN 19 MG/DL (9-23); CALCIUM LEVEL 9.2 MG/DL (8.5-10.1); CARBON DIOXIDE LEVEL 27 MMOL/L (20-31); CHLORIDE LEVEL 108 MMOL/L (98-107); GLOMERULAR FILTRATION RATE > 60.0 (>51); GLUCOSE, FASTING 93 MG/DL (60-100); POTASSIUM SERUM 4.9 MMOL/L (3.5-5.1); SODIUM LEVEL 141 MMOL/L (136-145); TOTAL PROTEIN 6.6 G/DL (5.7-8.2)
[2024-02-03 17:53] LABS: ERYTHROCYTE SEDIMENTATION RATE 36 mm/hr (0-30)
== END ==
LOC: M SFHCRHEU 15:01
PROVIDERS: ATTEND Internal Medicine
DX: M06.00 Rheumatoid arthritis without rheumatoid factor, unspecified site (principal)

== ENCOUNTER → 2024-02-24 | Outpatient (CLI) | payer BC, MEDICARE ==
[2024-02-24] VITALS (7 sets, daily range): BP systolic 107–127; BP diastolic 55–72; TEMP 97.3–97.9; O2SAT 96–99
[~2024-02-24] VITALS: Ht 167.6 cm; Wt 123.0 kg
[~2024-02-24] MED LIST changes: +ALBUTEROL SULFATE 2.5MG/0.5ML INH NEB SOLN INH PRN; +EPINEPHrine INJ 1 MG/ML 1ML AMP IM PRN; +diphenhydrAMINE 50MG/ML VIAL IV PRN; +methylPREDNISolone 125MG 2ML VIAL IV PRN
[2024-02-24] MEDS: ACETAMINOPHEN 650MG PO PRIOR TO INFUSION PO ONE (13:30)
[2024-02-24] MEDS: inFLIXimab INJECTION 400 MG in NS 210 ML IV ONE (13:58)
[2024-02-24] MEDS: diphenhydrAMINE 50MG PO PRIOR TO INFUSION PO ONE (14:35)
== END ==
LOC: M INFU 13:06
PROVIDERS: ATTEND Internal Medicine
DX: M06.00 Rheumatoid arthritis without rheumatoid factor, unspecified site (principal); Z88.5 Allergy status to narcotic agent; Z88.8 Allergy status to other drugs, medicaments and biological substances; Z91.013 Allergy to seafood
CPT/HCPCS: 96413; 96415; J1745

== ENCOUNTER 2024-03-09 15:00 | Outpatient (CLI) | payer BC, MEDICARE ==
[~2024-03-09] VITALS: Ht 167.6 cm; Wt 72.7 kg
[2024-03-09 14:55] VITALS: BP 116/60; O2SAT 98
[2024-03-09] MEDS: inFLIXimab INJECTION 400 MG in NS 210 ML IV ONE (15:52)
[2024-03-09] MEDS: diphenhydrAMINE 50MG PO PRIOR TO INFUSION PO ONE (15:55)
[2024-03-09] MEDS: ACETAMINOPHEN 650MG PO PRIOR TO INFUSION PO ONE (15:55)
[2024-03-09 16:28] VITALS: BP 105/59; O2SAT 97
[2024-03-09 17:00] VITALS: BP 111/53; O2SAT 97
[2024-03-09 17:52] VITALS: BP 119/60; O2SAT 96
== END 2024-03-09 18:00 | disposition home or self-care (01) ==
LOC: M INFU 15:00
PROVIDERS: ATTEND Internal Medicine
DX: M06.00 Rheumatoid arthritis without rheumatoid factor, unspecified site (principal); Z88.1 Allergy status to other antibiotic agents; Z88.5 Allergy status to narcotic agent
CPT/HCPCS: 96413; 96415; J1745

== ENCOUNTER 2024-04-06 14:35 | Outpatient (CLI) | payer BC, MEDICARE ==
[~2024-04-06] VITALS: Ht 167.6 cm; Wt 122.0 kg
[2024-04-06 14:45] VITALS: BP 129/66; O2SAT 98
[2024-04-06] MEDS: inFLIXimab INJECTION 400 MG in NS 210 ML IV ONE (15:21)
[2024-04-06] MEDS: ACETAMINOPHEN 650MG PO PRIOR TO INFUSION PO ONE (15:23)
[2024-04-06] MEDS: diphenhydrAMINE 50MG PO PRIOR TO INFUSION PO ONE (15:23)
[2024-04-06 15:50] VITALS: BP 132/74; O2SAT 98
[2024-04-06 17:21] VITALS: BP 131/72; O2SAT 97
== END 2024-04-06 17:30 ==
LOC: M INFU 14:35
PROVIDERS: ATTEND Internal Medicine
DX: M06.00 Rheumatoid arthritis without rheumatoid factor, unspecified site (principal); Z88.1 Allergy status to other antibiotic agents; Z88.5 Allergy status to narcotic agent
CPT/HCPCS: 96413; 96415; J1745

== ENCOUNTER 2024-08-23 13:11 | Outpatient (CLI) | payer BC, MEDICARE ==
[2024-08-23 13:30] VITALS: BP 119/52; O2SAT 97
[2024-08-23] MEDS: diphenhydrAMINE 50MG PO PRIOR TO INFUSION PO ONE (14:21)
[2024-08-23] MEDS: ACETAMINOPHEN 650MG PO PRIOR TO INFUSION PO ONE (14:21)
[2024-08-23] MEDS: inFLIXimab INJECTION 400 MG in NS 210 ML IV ONE (14:24)
== END 2024-08-23 16:25 ==
LOC: M INFU 13:11
PROVIDERS: ATTEND Internal Medicine
DX: M06.00 Rheumatoid arthritis without rheumatoid factor, unspecified site (principal); Z88.5 Allergy status to narcotic agent; Z88.8 Allergy status to other drugs, medicaments and biological substances; Z91.013 Allergy to seafood
CPT/HCPCS: 96413; 96415; J1745

== ENCOUNTER 2024-11-24 15:44 | Outpatient (CLI) | payer BC, MEDICARE ==
[~2024-11-24] VITALS: Ht 170.2 cm; Wt 135.0 kg
[~2024-11-24 15:44] MED LIST changes: +ALBUTEROL SULFATE 2.5MG/0.5ML INH CONCENTRATE NEB SOLN INH PRN; -ALBUTEROL SULFATE 2.5MG/0.5ML INH NEB SOLN INH PRN
[2024-11-24] MEDS: diphenhydrAMINE 25MG CAP PO ONE (15:53)
[2024-11-24] MEDS: ACETAMINOPHEN 650 MG PO ONE (15:53)
[2024-11-24 16:00] VITALS: BP 128/63; TEMP 98; O2SAT 97
[2024-11-24] MEDS ORDERED: NS (Normal Saline) 0.9% 1,000 ML IV SCH (16:30)
[2024-11-24] MEDS: ABATACEPT IV ONE (16:31)
[2024-11-24 17:03] VITALS: BP 100/55; O2SAT 98
== END 2024-11-24 17:05 | disposition home or self-care (01) ==
LOC: M INFU 15:44
PROVIDERS: ATTEND Internal Medicine
DX: M06.00 Rheumatoid arthritis without rheumatoid factor, unspecified site (principal); Z88.0 Allergy status to penicillin; Z88.5 Allergy status to narcotic agent
CPT/HCPCS: 96365; J0129

== ENCOUNTER 2024-12-08 16:10 | Outpatient (CLI) | payer BC, MEDICARE ==
[~2024-12-08] VITALS: Ht 170.2 cm; Wt 134.6 kg
[2024-12-08 16:05] VITALS: BP 128/59; O2SAT 96
[~2024-12-08 16:10] MED LIST changes: +PRED-1142 PO; -PRED1TABL PO
[2024-12-08] MEDS ORDERED: NS (Normal Saline) 0.9% 1,000 ML IV SCH (16:30)
[2024-12-08] MEDS: diphenhydrAMINE 25MG CAP PO ONE (16:39)
[2024-12-08] MEDS: ACETAMINOPHEN 650 MG PO ONE (16:39)
[2024-12-08] MEDS: ABATACEPT IV ONE (16:46)
[2024-12-08 17:20] VITALS: BP 119/68; O2SAT 97
== END 2024-12-08 17:20 | disposition home or self-care (01) ==
LOC: M INFU 16:10
PROVIDERS: ATTEND Internal Medicine
DX: M06.00 Rheumatoid arthritis without rheumatoid factor, unspecified site (principal); Z88.1 Allergy status to other antibiotic agents; Z88.5 Allergy status to narcotic agent
CPT/HCPCS: 96360; J0129

== ENCOUNTER 2025-05-21 15:54 | Outpatient (CLI) | payer BC, MEDICARE ==
[~2025-05-21] VITALS: Ht 167.6 cm; Wt 128.0 kg
[~2025-05-21 15:54] MED LIST changes: +ALBUTEROL SULFATE 2.5 MG/0.5 ML INH CONCENTRATE NEB SOLN INH PRN; -ALBUTEROL SULFATE 2.5MG/0.5ML INH CONCENTRATE NEB SOLN INH PRN; +diphenhydrAMINE 50 MG/ML VIAL IV PRN; -diphenhydrAMINE 50MG/ML VIAL IV PRN; -methylPREDNISolone 125MG 2ML VIAL IV PRN
[2025-05-21 16:10] VITALS: BP 117/56; O2SAT 95
[2025-05-21] MEDS: ABATACEPT IV ONE (16:52)
[2025-05-21] MEDS: ACETAMINOPHEN 650 MG ER TAB PO ONE (16:53)
[2025-05-21 17:20] VITALS: BP 137/70; O2SAT 99
== END 2025-05-21 17:24 | disposition home or self-care (01) ==
LOC: M INFU 15:54
PROVIDERS: ATTEND Internal Medicine
DX: M06.00 Rheumatoid arthritis without rheumatoid factor, unspecified site (principal); Z88.1 Allergy status to other antibiotic agents; Z88.5 Allergy status to narcotic agent; Z91.013 Allergy to seafood
CPT/HCPCS: 96365; J0129

== ENCOUNTER 2025-06-19 16:00 | Outpatient (CLI) | payer BC, MEDICARE ==
[~2025-06-19] VITALS: Ht 167.6 cm; Wt 127.0 kg
[2025-06-19 16:00] VITALS: BP 106/59; O2SAT 97
[2025-06-19] MEDS ORDERED: ACETAMINOPHEN 650 MG ER TAB PO ONE (16:30)
[2025-06-19] MEDS: ABATACEPT IV ONE (16:49)
[2025-06-19 17:21] VITALS: BP 138/58; O2SAT 96
== END 2025-06-19 17:00 | disposition home or self-care (01) ==
LOC: M INFU 16:00
PROVIDERS: ATTEND Internal Medicine
DX: M06.00 Rheumatoid arthritis without rheumatoid factor, unspecified site (principal); Z88.1 Allergy status to other antibiotic agents; Z88.5 Allergy status to narcotic agent
CPT/HCPCS: 96365; J0129

== ENCOUNTER 2025-07-17 15:57 | Outpatient (CLI) | payer BC, MEDICARE ==
[~2025-07-17] VITALS: Ht 168.9 cm; Wt 127.8 kg
[2025-07-17 16:00] VITALS: BP 127/68; O2SAT 100
[2025-07-17 16:10] VITALS: BP 140/81; TEMP 98.3; O2SAT 98
[2025-07-17] MEDS: ACETAMINOPHEN 650 MG ER TAB PO ONE (16:30)
[2025-07-17] MEDS: ABATACEPT IV ONE (17:08)
[2025-07-17 17:44] VITALS: BP 111/58; O2SAT 99
== END 2025-07-17 17:44 ==
LOC: M INFU 15:57
PROVIDERS: ATTEND Internal Medicine
DX: M06.00 Rheumatoid arthritis without rheumatoid factor, unspecified site (principal); Z88.1 Allergy status to other antibiotic agents; Z88.5 Allergy status to narcotic agent
CPT/HCPCS: 96365; J0129